=== PATIENT | male | born 1970 | race Caucasian/White ===

== ENCOUNTER 2018-02-18 08:03 | Emergency (ER) | payer SELFPAY ==
[~2018-02-18] VITALS: Ht 182.9 cm; Wt 70.3 kg
== END 2018-02-18 11:04 | disposition home or self-care (01) ==
LOC: ER 08:03
DX: S02.642A Fracture of ramus of left mandible, initial encounter for closed fracture (principal); S02.40FA Zygomatic fracture, left side, initial encounter for closed fracture; S02.82XA Fracture of other specified skull and facial bones, left side, initial encounter for closed fracture; S02.40DA Maxillary fracture, left side, initial encounter for closed fracture; F17.200 Nicotine dependence, unspecified, uncomplicated; W19.XXXA Unspecified fall, initial encounter
CPT/HCPCS: 70486; 99284